=== PATIENT | female | born 1955 | race Caucasian/White ===

== ENCOUNTER 2016-07-08 08:32 | Observation (INO) | payer OTHER ==
[2016-07-08] VITALS (19 sets, daily range): BP systolic 148–184; BP diastolic 66–90; PULSE 74–100; RESP 14–22; Ht 160 cm; Wt 91.6 kg
[~2016-07-08] VITALS: Ht 160 cm; Wt 91.6 kg
[~2016-07-08 08:32] MED LIST: BUPIVACAINE 0.25% (MPF) 10 ML 10 ML VIAL INJ ONE; CEFAZOLIN 1 GM INJ ONE; CEFAZOLIN 2 GM/50 ML (PMX) 50 ML IVPB ONE; SOD CHLORIDE 0.9% 1,000 ML IV ONE
--- NOTE | 2016-07-08 09:41 | RADRPT ---
PROCEDURE: XR Chest. CLINICAL INDICATION: Preop TECHNIQUE: A single AP view of the chest was obtained. COMPARISON: None. FINDINGS: Lung volumes are low. No focal airspace opacification, pleural effusion or pneumothorax is seen. T he cardiomediastinal silhouette is within normal limits for size. The osseous structures are unrema rkable. IMPRESSION: Low lung volumes. No radiographic evidence of acute cardiopulmonary disease. RPTAT: HH .Elizabeth Valdovinos MD, MD Date Time Electronically viewed and signed by .Elizabeth Valdovinos MD, MD on 07/08/2016 09:40 .G/
[2016-07-08] MEDS ORDERED: VERA120C9 PO (09:46)
[2016-07-08] MEDS ORDERED: DAPA10TA PO (09:46)
[2016-07-08] MEDS ORDERED: VIT1TABL85 PO (09:46)
[2016-07-08] MEDS ORDERED: METO-407 PO (09:46)
[2016-07-08] MEDS ORDERED: BENA40TA41 PO (09:46)
[2016-07-08] MEDS ORDERED: SYN112 PO (09:46)
[2016-07-08] MEDS ORDERED: SITA100T8 PO (09:46)
[2016-07-08] MEDS ORDERED: HYDR-3671 PO (09:46)
[2016-07-08] MEDS ORDERED: GLIM4TAB PO (09:46)
[2016-07-08] MEDS ORDERED: LANT3I SC (09:46)
[2016-07-08] MEDS ORDERED: FENTAnyl 50 MCG/ML VIAL ONE (10:18)
[2016-07-08] MEDS ORDERED: MIDAZOLAM 1 MG/ML 2 ML INJ ONE (10:18)
[2016-07-08] MEDS ORDERED: hydrALAzine 20 MG INJ IV PRN ×2 (10:30→19:30)
[2016-07-08] MEDS ORDERED: LABETALOL HCL 20MG INJ IV PRN (10:30)
[2016-07-08] MEDS ORDERED: DIPHENHYDRAMINE 50 MG INJ IV PRN (10:30)
[2016-07-08] MEDS ORDERED: MEPERIDINE 25 MG INJ IV PRN (10:30)
[2016-07-08] MEDS ORDERED: morphine (1 MG/ML) 10ML SYRINGE IV PRN ×2 (10:30)
[2016-07-08] MEDS ORDERED: ONDANSETRON 4 MG INJ IV PRN ×2 (10:30→22:00)
[2016-07-08] MEDS ORDERED: morphine 10 MG INJ ONE (10:49)
[2016-07-08] MEDS ORDERED: PHENYLephrine (100 MCG/ML) 5ML SYG ONE (11:13)
[2016-07-08] MEDS ORDERED: NEOSTIGMINE 3 MG/3 ML SYRINGE ONE (11:45)
[2016-07-08] MEDS ORDERED: GLYCOPYRROLATE 0.4 MG INJ ONE (11:45)
[2016-07-08] MEDS ORDERED: LIDOCAINE 2% (SDV) 5 ML INJ ONE (11:45)
[2016-07-08] MEDS ORDERED: ONDANSETRON 4 MG INJ ONE (11:45)
[2016-07-08] MEDS ORDERED: PROPOFOL 20 ML ONE (11:45)
[2016-07-08] MEDS ORDERED: ROCURONIUM 50 MG INJ ONE (11:45)
[2016-07-08] MEDS ORDERED: LACTATED RINGER'S 1,000 ML IV SCH (11:46)
[2016-07-08] MEDS ORDERED: HYDROCODONE/APAP (5/325) TAB PO PRN (12:00)
[2016-07-08] MEDS ORDERED: morphine 2 MG INJ IV PRN ×2 (12:00→18:30)
[2016-07-08] MEDS: FENTAnyl 50 MCG/ML VIAL IV PRN ×4 (12:08→12:31)
[2016-07-08] MEDS ORDERED: GLUCOSE GEL 15 GRAM TUBE BUCCAL PRN (14:00)
[2016-07-08] MEDS ORDERED: GLUCOSE GEL 15 GRAM TUBE PO PRN ×2 (14:00)
[2016-07-08] MEDS ORDERED: DEXTROSE 50% 50 ML SYRINGE IV PRN ×2 (14:00)
[2016-07-08] MEDS ORDERED: GLUCAGON 1 MG INJ IM PRN (14:00)
--- NOTE | 2016-07-08 14:16 | OPR ---
DATE OF OPERATION: 07/08/2016 INDICATION: This is a 61-year-old female with hyperparathyroidism. Imaging revealing a right parat hyroid adenoma. She is taken to the OR for right lower parathyroidectomy. Risks, alternatives, preston efits, and personnel were discussed with the patient. Patient expressed his understanding and conse nts to the operation. PREOPERATIVE DIAGNOSIS: Hyperparathyroidism. POSTOPERATIVE DIAGNOSIS: Hyperparathyroidism. OPERATIONS: Right lower parathyroidectomy. SURGEON: Spike Gore MD MANAGER MANAGED CARE: John Vargas MD SPECIMEN: Right lower parathyroid. COMPLICATIONS: None. ANESTHESIA: General. DESCRIPTION OF PROCEDURE: The patient was taken to the OR, prepped and draped in the usual sterile fashion. Surgical time out was performed. IV antibiotics were given. Collar incision was made wit h a 15 blade. Dissection cautery was carried down through the platysma. Superior and inferior plat ysmal skin flaps were created midline, strap muscles were divided. Attention was paid to the right parathyroid middle, thyroidal vein is ligated. Right lower parathyroid is identified posterior to t he right lower parathyroid lobe. The pedicle was identified and ligated with 2 clips. The parathyr oid had been sent as specimen. Frozen section revealed that there was a parathyroid identified. Th e parathyroid gland was approximately 1 cm in size. Irrigation was used with Valsalva maneuver of 4 0 cm. No evidence of bleeding was seen. Midline strap muscles were closed with interrupted 3-0 Rojelio ryl. Platysma was closed with interrupted 3-0 Vicryl. Skin was closed with interrupted 3-0 Vicryl and running 4-0 Monocryl. Local anesthesia was injected. Dry dressings were applied. Dictated By: SPIKE CALLAHAN/JACK Conf#: [id number] DID#: [id number]
[2016-07-08] MEDS: BENAZEPRIL 40 MG TAB PO SCH (14:29)
[2016-07-08 14:38] LABS: ADD SCAN DIFF NO
[2016-07-08 14:40] LABS: BASOPHILS % 0.3 % (0.0-2.0); EOSINOPHILS % 0.5 % (0.0-7.0); HEMATOCRIT 38.3 % (37.0-47.0); HEMOGLOBIN 12.3 g/dl (12.0-16.0); LYMPHOCYTES # 1.1 10^3/ul (0.8-2.9); MEAN CORPUSCULAR HEMOGLOBIN 26.6 pg (29.0-33.0); MEAN CORPUSCULAR HGB CONC 32.1 g/dl (32.0-37.0); MEAN CORPUSCULAR VOLUME 82.9 fl (82.0-101.0); MEAN PLATELET VOLUME 11.1 fl (7.4-10.4); MONOCYTE # 0.4 10^3/ul (0.3-0.9); MONOCYTES % 4.2 % (0.0-11.0); NEUTROPHIL # 7.2 10^3/ul (1.6-7.5); NEUTROPHILS % 82.3 % (39.0-77.0); PLATELET COUNT 210 10^3/UL (140-415); RED BLOOD COUNT 4.62 10^6/ul (4.20-5.40); RED CELL DISTRIBUTION WIDTH 13.7 % (11.5-14.5); WHITE BLOOD COUNT 8.7 10^3/ul (4.8-10.8)
[2016-07-08 14:49] LABS: ALBUMIN 3.2 g/dl (3.3-4.9); POTASSIUM 4.7 mmol/L (3.5-5.1)
[2016-07-08 14:51] LABS: CREATININE 0.78 mg/dl (0.44-1.00)
[2016-07-08 14:52] LABS: ALBUMIN/GLOBULIN RATIO 1.23; CALCIUM 9.5 mg/dl (8.4-10.2); TOTAL PROTEIN 5.8 g/dl (6.1-8.1)
--- NOTE | 2016-07-08 16:31 | HP ---
DATE OF ADMISSION: 07/08/2016 CHIEF COMPLAINT: Neck pain. HISTORY OF PRESENT ILLNESS: The patient is a 61-year-old female with history of hypertension, diabe ulysses, hypothyroidism and was being followed by Dr. Chavarria from endocrinology standpoint and was diag nosed with hyperparathyroidism due to right parathyroid adenoma. Patient was brought in to hospital today and underwent right carotid endarterectomy. The patient did have significant postoperative p ain; therefore, patient is being admitted for further evaluation and management. The patient denied any chest pain or shortness of breath, no vomiting, no reported recent leg pain or leg edema. No r eported shortness of breath. Patient did have elevated blood pressure readings postoperatively and was given IV hydralazine. No reported focal weakness. No reported headache, except for postoperati ve pain, the rest of review of systems were unremarkable. PAST SURGICAL HISTORY: Status post periumbilical hernia repair. ALLERGIES: NONE. SOCIAL HISTORY: No smoking, no alcohol. FAMILY HISTORY: Noncontributory. PHYSICAL EXAMINATION: GENERAL: The patient is conscious, awake, alert. VITAL SIGNS: Temperature 97.6, pulse 96, blood pressure 167/75, O2 saturation 95%. Denies cannula, respirations 17. HEENT: Conjunctivae and lids normal. Extraocular movements intact. Nose and ears normal externall y. Oropharynx examination was deferred due to recent neck surgery. NECK: Again was deferred due to postoperative dressing. CHEST: Fairly clear. CARDIOVASCULAR: S1, S2 normal. No murmur. ABDOMEN: Soft, nondistended, nontender. EXTREMITIES: No leg edema. NEUROLOGIC: The patient is awake, alert, fairly oriented with no gross focal deficit. LABORATORY DATA: Random glucose level was 151. Labs prior to admission, sodium 138, potassium 4.8, BUN 26, creatinine 0.8, glucose 112. Coagulation profile normal. WBC 5.8, hemoglobin 13.4, platel ets 222. EKG revealed normal sinus rhythm. No acute SV changes. IMPRESSION: 1. Hyperparathyroidism due to right parathyroid adenoma status post right parathyroidectomy. 2. Hypertension. 3. Diabetes mellitus. 4. Hypertension. PLAN: The patient will be admitted on medical floor. Patient will be started on clear liquid diet, which will be advanced as tolerated and will resume Benazepril, hydralazine, metoprolol and verapami l as at home. The patient will hold off on Amaryl. The patient takes Lantus 100 units 3 times a day , but sometimes skips a dose and sometimes takes 75 units. Will continue Januvia and levothyroxine. Will put her on sliding scale insulin and will continue to monitor. Plan discussed with patient's f adam. Patient will receive IV cefazolin as per protocol. Dictated By: RAYA HAWLEY/JACK Conf#: [id number] DID#: [id number]
[2016-07-08] MEDS: INSULIN ASPART [NOVOLOG] 3 ML PEN SC SCH ×2 (17:41→20:47)
[2016-07-08] MEDS ORDERED: ACETAMINOPHEN 1000MG/100ML IV 100 ML IVPB PRN (18:30)
[2016-07-08] MEDS ORDERED: ACETAMINOPHEN (10 MG/ML) IV SYG IV* PRN (18:30)
[2016-07-08] MEDS ORDERED: INSULIN GLARGINE [LANtus] 3 ML PEN SC SCH (20:00)
[2016-07-08] MEDS: HYDROCODONE/APAP (5/325) TAB PO PRN (20:51)
[2016-07-08] MEDS: METOPROLOL 100 MG TAB PO SCH (20:52)
[2016-07-08] MEDS ORDERED: INSULIN GLARGINE [LANtus] 3 ML PEN SC ONE (21:30)
[2016-07-08] MEDS ORDERED: PANTOPRAZOLE 40 MG INJ IV ONE (22:00)
[2016-07-08] MEDS: VERAPAMIL (SR) 120 MG TAB PO SCH (22:18)
[2016-07-08] MEDS: KETOROLAC 15 MG INJ IV PRN (22:21)
[2016-07-08] MEDS: CEFAZOLIN 2 GM/50 ML (PMX) 50 ML IVPB SCH (22:22)
[2016-07-09] MEDS: CEFAZOLIN 2 GM/50 ML (PMX) 50 ML IVPB SCH (04:59)
[2016-07-09 05:04] LABS: ADD SCAN DIFF NO
[2016-07-09 05:16] LABS: BASOPHIL # 0.1 10^3/ul (0.0-0.1); BASOPHILS % 0.6 % (0.0-2.0); EOSINOPHILS # 0.2 10^3/ul (0.0-0.5); EOSINOPHILS % 1.8 % (0.0-7.0); HEMOGLOBIN 12.1 g/dl (12.0-16.0); LYMPHOCYTES # 1.8 10^3/ul (0.8-2.9); LYMPHOCYTES % 19.7 % (15.0-51.0); MEAN CORPUSCULAR HEMOGLOBIN 26.7 pg (29.0-33.0); MEAN CORPUSCULAR HGB CONC 31.8 g/dl (32.0-37.0); MEAN CORPUSCULAR VOLUME 83.7 fl (82.0-101.0); MEAN PLATELET VOLUME 11.5 fl (7.4-10.4); MONOCYTE # 0.6 10^3/ul (0.3-0.9); MONOCYTES % 7.1 % (0.0-11.0); NEUTROPHIL # 6.3 10^3/ul (1.6-7.5); NEUTROPHILS % 70.5 % (39.0-77.0); PLATELET COUNT 229 10^3/UL (140-415); RED BLOOD COUNT 4.54 10^6/ul (4.20-5.40); RED CELL DISTRIBUTION WIDTH 14.2 % (11.5-14.5); WHITE BLOOD COUNT 8.9 10^3/ul (4.8-10.8)
[2016-07-09] MEDS ORDERED: PANTOPRAZOLE 40 MG INJ IV SCH (06:00)
[2016-07-09 06:10] LABS: ALBUMIN 2.9 g/dl (3.3-4.9); POTASSIUM 4.5 mmol/L (3.5-5.1)
[2016-07-09 06:12] LABS: BILIRUBIN,INDIRECT 0.1 mg/dl (0-1.1); BILIRUBIN,TOTAL 0.1 mg/dl (0.2-1.3)
[2016-07-09 06:13] LABS: ALBUMIN/GLOBULIN RATIO 0.87; CALCIUM 8.6 mg/dl (8.4-10.2); TOTAL PROTEIN 6.2 g/dl (6.1-8.1)
[2016-07-09] MEDS ORDERED: LEVOTHYROXINE 112 MCG TAB PO SCH (07:00)
[2016-07-09] MEDS: KETOROLAC 15 MG INJ IV PRN ×2 (07:27→12:45)
[2016-07-09] MEDS: INSULIN ASPART [NOVOLOG] 3 ML PEN SC SCH ×4 (08:00→20:17)
[2016-07-09 08:24] VITALS: BP 133/61; RESP 20
[2016-07-09] MEDS: INSULIN GLARGINE [LANtus] 3 ML PEN SC SCH ×2 (08:49→20:16)
[2016-07-09] MEDS: VERAPAMIL (SR) 120 MG TAB PO SCH ×2 (08:49→20:14)
[2016-07-09] MEDS: BENAZEPRIL 40 MG TAB PO SCH (08:50)
[2016-07-09] MEDS: METOPROLOL 100 MG TAB PO SCH ×2 (08:50→20:13)
[2016-07-09] MEDS ORDERED: VITAMIN A & D 5 GM OINT PACKET TOP ONE (08:58)
[2016-07-09] MEDS ORDERED: NON-FORMULARY/PATIENT OWN MED (Sitagliptin* (Januvia*) 100 MG) PO SCH (09:00)
[2016-07-09] MEDS ORDERED: INFLUENZA VIRUS VACCINE 0.5 ML SYG IM* ONE (09:00)
[2016-07-09] MEDS ORDERED: LINAGLIPTIN 5 MG TABLET PO SCH (09:00)
--- NOTE | 2016-07-09 12:06 | RADRPT ---
PROCEDURE: US upper extremity Venous. CLINICAL INDICATION: Left arm swelling TECHNIQUE: Multiple sonographic images of the left upper extremity venous system was obtained util izing grayscale, color-flow, compressive sonography and doppler imaging with augmentation. The imag es were reviewed on a PACS workstation. COMPARISON: None. FINDINGS: There is normal compressibility and flow within the left internal jugular vein, subclavian vein, axi llary vein, brachial, basilic, cephalic, radial and ulnar veins. RPTAT: AA IMPRESSION: No sonographic evidence for venous thrombosis. .Cy Millard MD, MD Date Time Electronically viewed and signed by .Cy Millard MD, MD on 07/09/2016 12:06 .S/
--- NOTE | 2016-07-09 14:37 | PN ---
Date/Time of Note Date/Time of Note DATE: 07/09/16 TIME: 14:35 Assessment/Plan VTE Prophylaxis VTE Prophylaxis Intervention: SCD's Lines/Catheters IV C[facility]ter Type [facility]from [facility] Assessment/Plan Chief Complaint/Hosp Course s/p right parathyroidectomy Problems: Assessment/Plan d/c home f/u in 2 weeks Subjective 24 Hr Interval Summary Free Text/Dictation doing well, voice normal Exam/Review of Systems Vital Signs Vitals Vital Signs Date Time Temp Pulse Resp B/P Pulse Ox O2 Delivery O2 Flow Rate FiO2 07/09/16 08:24 98.4 83 20 133/61 92 07/08/16 13:25 Nasal Cannula 2.0 Intake and Output 07/08/16 07/08/16 07/09/16 15:00 23:00 07:00 Intake Total 0 ml 50 ml Balance 0 ml 50 ml Exam clean dry intact Results Result Diagram: 07/09/16 0435 07/09/16 0435 Results 24 hrs Laboratory Tests Test 07/08/16 16:34 07/08/16 20:33 07/08/16 21:12 07/09/16 04:35 Bedside Glucose 141 121 Calcium Level 9.2 8.6 Alanine Aminotransferase (ALT/SGPT) 43 Albumin 2.9 L Albumin/Globulin Ratio 0.87 Alkaline Phosphatase 105 Anion Gap 13 Aspartate Amino Transf (AST/SGOT) 31 Basophils # 0.1 Basophils % 0.6 Blood Urea Nitrogen 30 H Carbon Dioxide Level 26 Chloride Level 103 Creatinine 1.00 Direct Bilirubin 0.00 Eosinophils # 0.2 Eosinophils % 1.8 Globulin 3.30 H Glucose Level 109 # Hematocrit 38.0 Hemoglobin 12.1 Indirect Bilirubin 0.1 Lymphocytes # 1.8 Lymphocytes % 19.7 Mean Corpuscular Hemoglobin 26.7 L Mean Corpuscular Hemoglobin Concent 31.8 L Mean Corpuscular Volume 83.7 Mean Platelet Volume 11.5 H Monocytes # 0.6 Monocytes % 7.1 Neutrophils # 6.3 Neutrophils % 70.5 Nucleated Red Blood Cells # 0.0 Nucleated Red Blood Cells % 0.0 Platelet Count 229 Potassium Level 4.5 Red Blood Count 4.54 Red Cell Distribution Width 14.2 Sodium Level 137 Total Bilirubin 0.1 L Total Protein 6.2 White Blood Count 8.9 Test 07/09/16 07:33 07/09/16 11:19 Bedside Glucose 110 150 Medications Medications Current Medications Benazepril HCl (Lotensin) 40 mg DAILY PO Last administered on 07/09/16 08:50; Admin Dose 40 MG; Start 07/08/16 at 14:00 Hydralazine HCl (Apresoline) 25 mg Q8 PO Last administered on 07/09/16 13:51; Admin Dose 25 MG; Start 07/08/16 at 14:00 Metoprolol Tartrate (Lopressor) 100 mg BID PO Last administered on 07/09/16 08 :50; Admin Dose 100 MG; Start 07/08/16 at 21:00 Verapamil HCl (Isoptin Sr) 120 mg BID PO Last administered on 07/09/16 08:49; Admin Dose 120 MG; Start 07/08/16 at 21:00 Linagliptin (Tradjenta) 5 mg DAILY PO Last administered on 07/09/16 08:49; Admin Dose 5 MG; Start 07/09/16 at 09:00 Miscellaneous Information 1 ea NOTE XX ; Start 07/08/16 at 14:00 Glucose (Glutose) 15 gm Q15M PRN PO DECREASED GLUCOSE; Start 07/08/16 at 14:00 Glucose (Glutose) 22.5 gm Q15M PRN PO DECREASED GLUCOSE; Start 07/08/16 at 14: 00 Dextrose (D50w Syringe) 25 ml Q15M PRN IV DECREASED GLUCOSE; Start 07/08/16 at 14:00 Dextrose (D50w Syringe) 50 ml Q15M PRN IV DECREASED GLUCOSE; Start 07/08/16 at 14:00 Glucagon (Glucagen) 1 mg Q15M PRN IM DECREASED GLUCOSE; Start 07/08/16 at 14:00 Glucose (Glutose) 15 gm Q15M PRN BUCCAL DECREASED GLUCOSE; Start 07/08/16 at 14 :00 Morphine Sulfate (morphine) 2 mg Q2H PRN IV PAIN Last administered on 18:33; Admin Dose 2 MG; Start 07/08/16 at 18:30 Acetaminophen/ Hydrocodone Bitart 1 tab 1 tab Q6H PRN PO PAIN Last administered on 07/08/16 20:51; Admin Dose 1 TAB; Start 07/08/16 at 18:30 Acetaminophen (Ofirmev 1000mg/ 100ml Iv) 100 ml @ 400 mls/hr Q6H PRN IVPB PAIN ; Start 07/08/16 at 18:30 Hydralazine HCl (Apresoline) 10 mg Q4H PRN IV SBP >160 Last administered on 20:52; Admin Dose 10 MG; Start 07/08/16 at 19:30 Insulin Glargine (Lantus) 50 unit BID@08,20 SC Last administered on 07/09/16 08:49; Admin Dose 50 UNIT; Start 07/09/16 at 08:00 Ondansetron HCl (Zofran Inj) 4 mg Q4H PRN IV NAUSEA AND/OR VOMITING Last administered on 07/08/16 22:18; Admin Dose 4 MG; Start 07/08/16 at 22:00 Ketorolac Tromethamine (Toradol) 15 mg Q6H PRN IV PAIN Last administered on 12:45; Admin Dose 15 MG; Start 07/08/16 at 22:00; Stop 07/11/16 at 21:59 Pantoprazole (Protonix Tab) 40 mg DAILY@06 PO ; Start 07/10/16 at 06:00 Nikos HERNANDEZ Jul 09, 2016 14:37
[2016-07-09] MEDS: HYDROCODONE/APAP (5/325) TAB PO PRN (17:28)
[2016-07-09] MEDS ORDERED: HYDR-906 PO (18:28)
[2016-07-09 20:19] VITALS: BP 183/80; RESP 17
[2016-07-09] MEDS ORDERED: KETOROLAC 15 MG INJ IM ONE (21:30)
[2016-07-09 22:15] VITALS: BP 162/71; RESP 18
[2016-07-10] MEDS ORDERED: PANTOPRAZOLE (EC) 40 MG TAB PO SCH (06:00)
== END 2016-07-09 22:37 | disposition home or self-care (01) ==
LOC: SDS 08:32 → PP2 11:48 → UNDOADMOB 14:46 → PP2 14:46
PROVIDERS: ADMIT Internal Medicine; ATTEND Surgery
DX: D35.1 Benign neoplasm of parathyroid gland (principal); E21.3 Hyperparathyroidism, unspecified; I10 Essential (primary) hypertension; E11.9 Type 2 diabetes mellitus without complications; E78.5 Hyperlipidemia, unspecified; Z23 Encounter for immunization
CPT/HCPCS: 60500; 71010; 80053; 82310; 82962; 85025; 88307; 88331; 90686; 93971; 96365; 96372; 96374; 96375; C9113; G0008; J0360; J0690; J1815; J1885; J2175; J2250; J2270; J2405; J2710; J3010; Z7500; Z7512; Z7610; 99217; G0378; J2370